=== PATIENT | male | born 1975 | race African-American/Black ===

== ENCOUNTER 2020-07-10 07:35 | Emergency (ER) | payer OTHER ==
[~2020-07-10] VITALS: Ht 180.3 cm; Wt 80.3 kg
[2020-07-10] MEDS ORDERED: CLEOCIN HCL300 MG PO (07:45)
[2020-07-10] MEDS ORDERED: KETO10TA2 PO (12:15)
[2020-07-10] MEDS ORDERED: DOXYCYCLINE HY100 M2 PO (12:18)
== END 2020-07-10 12:33 | disposition home or self-care (01) ==
LOC: ER 07:35
DX: L02.414 Cutaneous abscess of left upper limb (principal)

== ENCOUNTER 2021-09-18 11:47 | Emergency (ER) | payer OTHER ==
[~2021-09-18] VITALS: Ht 180.3 cm; Wt 79.4 kg
[~2021-09-18 11:47] MED LIST: CLEOCIN HCL300 MG PO; DOXYCYCLINE HY100 M2 PO; KETO10TA2 PO
[2021-09-18] MEDS ORDERED: KETO10TA2 PO (16:02)
[2021-09-18] MEDS ORDERED: ZITHROMAX500 MG PO (16:06)
== END 2021-09-18 16:46 | disposition home or self-care (01) ==
LOC: ER 11:47
DX: B02.8 Zoster with other complications (principal); A49.3 Mycoplasma infection, unspecified site

== ENCOUNTER 2021-09-30 17:45 | Emergency (ER) | payer OTHER ==
[~2021-09-30] VITALS: Ht 180.3 cm; Wt 79.4 kg
[~2021-09-30 17:45] MED LIST changes: +ZITHROMAX500 MG PO
[2021-09-30] MEDS ORDERED: BENADRYL (18:54)
[2021-09-30] MEDS ORDERED: CAPSAICIN42.5 GM TOP (19:29)
[2021-09-30] MEDS ORDERED: NEURONTIN300 MG PO (19:29)
== END 2021-09-30 19:52 | disposition home or self-care (01) ==
LOC: ER 17:45
DX: B02.8 Zoster with other complications (principal)

== ENCOUNTER 2022-09-21 11:02 | Emergency (ER) | payer OTHER ==
[~2022-09-21] VITALS: Ht 180.3 cm; Wt 77.1 kg
[~2022-09-21 11:02] MED LIST changes: +BENADRYL; +CAPSAICIN42.5 GM TOP; +NEURONTIN300 MG PO
== END 2022-09-21 15:52 | disposition home or self-care (01) ==
LOC: ER 11:02
DX: M54.9 Dorsalgia, unspecified (principal)